=== PATIENT | female | born 2000 | race Caucasian/White ===

== ENCOUNTER 2023-02-19 21:53 | Emergency (ER) | payer BC, OTHER ==
[2023-02-19 22:17] VITALS: BP 119/73; PULSE 71; RESP 18; TEMP 97.9; BMI 33.8
[2023-02-20] MEDS ORDERED: ACETAMINOPHEN 1000 MG/100 ML BAG IVPB ONE (01:06)
[2023-02-20 01:51] LABS: EPI CELLS 22 /uL (0-25.1); HYALINE CASTS 0 /uL (0-3.1); URINE APPEARANCE CLEAR; URINE BACTERIA 1707 /uL (0-1359); URINE BILIRUBIN NEGATIVE (NEGATIVE); URINE COLOR YELLOW; URINE GLUCOSE (UA) NEGATIVE (NEGATIVE); URINE KETONE NEGATIVE (NEGATIVE); URINE LEUK ESTERASE NEGATIVE (NEGATIVE); URINE NITRITE NEGATIVE (NEGATIVE); URINE PROTEIN NEGATIVE (NEGATIVE); URINE UROBILINOGEN 0.2 mg/dL (0.2-1.0); URINE WBC 17 /uL (0-25.8)
[2023-02-20 02:05] LABS: HCG,QUALITATIVE URINE Negative
[2023-02-20] MEDS ORDERED: ACETAMINOPHEN INJECTION 100 ML IVPB ONE (02:18)
[2023-02-20] MEDS ORDERED: ACETAMINOPHEN 500 MG TABLET (FP) ONE (02:26)
[2023-02-20] MEDS ORDERED: ACETAMINOPHEN 325 MG TABLET (FP) PO ONE (02:28)
[2023-02-20 02:42] LABS: BASO % 0.9 % (0-2.0); EOS % 0.9 % (0-4.5); HEMATOCRIT 38.8 % (32.4-45.2); HEMOGLOBIN 12.8 GM/dL (10.7-15.3); LYMPH % 36.4 % (8-40); MCH 29.5 pg (25.7-33.7); MCHC 32.9 g/dl (32.0-36.0); MEAN CELL VOLUME 89.6 fl (80-96); MEAN PLT VOLUME 9.9 fl (7.5-11.1); MONO % 8.4 % (3.8-10.2); NEUT % 53.4 % (42.8-82.8); PLATELET COUNT 185 10^3/uL (134-434); RBC 4.33 M/mm3 (3.60-5.2); WHITE BLOOD COUNT 6.9 K/mm3 (4.0-10.0)
[2023-02-20 02:58] LABS: INR 1.08 (0.83-1.09); PROTHROMBIN TIME (PATIENT) 12.5 SEC (9.7-13.0)
[2023-02-20 03:01] LABS: ACTIVATED PTT 28.6 SECONDS (25.2-36.5)
[2023-02-20 03:03] LABS: CHLORIDE 108 mmol/L (98-107); POTASSIUM 4.4 mmol/L (3.5-5.1); SODIUM 140 mmol/L (136-145)
[2023-02-20 03:05] LABS: CALCIUM 8.8 mg/dL (8.5-10.1); GLUCOSE,RANDOM 102 mg/dL (74-106)
[2023-02-20 03:06] LABS: ALBUMIN 3.8 g/dl (3.4-5.0); ANION GAP 6 MMOL/L (8-16); CO2 27 mmol/L (21-32)
[2023-02-20 03:08] LABS: CREATININE 0.7 mg/dL (0.55-1.3)
[2023-02-20 03:09] LABS: SGOT/AST 16 U/L (15-37); SGPT/ALT 26 U/L (13-61)
[2023-02-20 03:10] LABS: BILIRUBIN,TOTAL 0.2 mg/dL (0.2-1); TOT PROT 6.8 g/dl (6.4-8.2)
[2023-02-20 03:11] LABS: ALK PHOS 96 U/L (45-117)
[2023-02-20 10:54] LABS: URINE RBC 35.9 /uL (0-23.9)
== END 2023-02-20 06:49 | disposition left against medical advice (07) ==
LOC: JER 21:53
DX: R25.2 Cramp and spasm (principal); R10.31 Right lower quadrant pain; N93.9 Abnormal uterine and vaginal bleeding, unspecified
CPT/HCPCS: 36415; 76830-TC; 80053; 81003; 84702; 84703; 85025; 85610; 85730; 87086; 99284-25